=== PATIENT | male | born 1960 | race Hispanic/Latino ===

== ENCOUNTER 2017-12-06 08:17 | Emergency (ER) | payer MEDICARE | END 2017-12-06 08:56 | disposition home or self-care (01) | LOC: EDH 08:17 | DX: M10.9 Gout, unspecified (principal); E78.5 Hyperlipidemia, unspecified; Z90.49 Acquired absence of other specified parts of digestive tract ==

== ENCOUNTER 2018-04-09 08:13 | Emergency (ER) | payer MEDICARE ==
[2018-04-09 08:39] LABS: APPEARANCE,URINE Turbid (CLEAR); BILIRUBIN,URINE Small (NEGATIVE); GLUCOSE, URINE (UA) Negative (NEGATIVE); KETONES,URINE Negative (NEGATIVE); LEUKOCYTE ESTERASE ,URINE Large (NEGATIVE); NITRATE,URINE Positive (NEGATIVE); OCCULT BLOOD,URINE Moderate (NEGATIVE); PROTEIN,URINE POS 2+ (NEGATIVE)
[2018-04-09 08:40] LABS: COLOR,URINE Orange (YELLOW)
[2018-04-09 09:32] LABS: BACTERIA,URINE Moderate /HPF (None Seen); SQUAMOUS EPITHELIAL CELL,UR Few /HPF (0-2); WBC,URINE TNTC /HPF (0-1)
== END 2018-04-09 09:46 | disposition home or self-care (01) ==
LOC: EDH 08:13
DX: N39.0 Urinary tract infection, site not specified (principal); E78.5 Hyperlipidemia, unspecified; Z90.49 Acquired absence of other specified parts of digestive tract
CPT/HCPCS: 81001; 87088; 87186

== ENCOUNTER 2018-07-14 07:03 | Emergency (ER) | payer MEDICARE ==
[2018-07-14 07:30] LABS: APPEARANCE,URINE Turbid (CLEAR); BILIRUBIN,URINE Negative (NEGATIVE); COLOR,URINE Yellow (YELLOW); GLUCOSE, URINE (UA) Negative (NEGATIVE); KETONES,URINE Negative (NEGATIVE); LEUKOCYTE ESTERASE ,URINE Large (NEGATIVE); NITRATE,URINE Negative (NEGATIVE); OCCULT BLOOD,URINE Large (NEGATIVE); PROTEIN,URINE POS 2+ (NEGATIVE); UROBILINOGEN,URINE 0.2 mg/dL (0.2-1.0)
[2018-07-14 07:46] LABS: BACTERIA,URINE Moderate /HPF (None Seen); WBC,URINE TNTC /HPF (0-1)
[2018-07-14 07:55] LABS: SQUAMOUS EPITHELIAL CELL,UR Rare /HPF (0-2)
[2018-07-14] MEDS ORDERED: CEFTRIAXONE SODIUM 1 GM ONE (08:33)
[2018-07-14] MEDS ORDERED: LIDOCAINE HCL MPF 1% 5ML VIAL ONE (08:34)
== END 2018-07-14 08:51 | disposition home or self-care (01) ==
LOC: EDH 07:03
DX: N39.0 Urinary tract infection, site not specified (principal); E78.5 Hyperlipidemia, unspecified; M10.9 Gout, unspecified; Z87.891 Personal history of nicotine dependence
CPT/HCPCS: 81001; 87077; 87088; 87186; 96372; 99284; J0696; J3490

== ENCOUNTER 2018-07-30 18:33 | Emergency (ER) | payer MEDICARE ==
[2018-07-30] MEDS ORDERED: KETOROLAC TROMETHAMINE 60 MG/2 ML VIAL ONE (19:50)
== END 2018-07-30 20:24 | disposition home or self-care (01) ==
LOC: EDH 18:33
DX: S93.492A Sprain of other ligament of left ankle, initial encounter (principal); S83.8X1A Sprain of other specified parts of right knee, initial encounter; E78.5 Hyperlipidemia, unspecified; M10.9 Gout, unspecified; X58.XXXA Exposure to other specified factors, initial encounter; Y93.89 Activity, other specified; Y92.098 Other place in other non-institutional residence as the place of occurrence of the external cause; Y99.8 Other external cause status
CPT/HCPCS: 29505; 96372; 99283; J1885

== ENCOUNTER 2018-11-30 08:54 | Emergency (ER) | payer MEDICARE ==
[2018-11-30] MEDS ORDERED: KETOROLAC TROMETHAMINE 60 MG/2 ML VIAL ONE (09:48)
== END 2018-11-30 09:54 | disposition home or self-care (01) ==
LOC: EDH 08:54
DX: M10.9 Gout, unspecified (principal); E78.5 Hyperlipidemia, unspecified
CPT/HCPCS: 96372; 99283; J1885

== ENCOUNTER 2019-07-08 11:21 | Emergency (ER) | payer MEDICARE ==
[2019-07-08 11:57] LABS: APPEARANCE,URINE CLOUDY (CLEAR); BILIRUBIN,URINE SMALL (NEGATIVE); COLOR,URINE YELLOW (YELLOW); GLUCOSE, URINE (UA) 100 mg/dL (NEGATIVE); KETONES,URINE NEGATIVE (NEGATIVE); LEUKOCYTE ESTERASE ,URINE MODERATE (NEGATIVE); NITRATE,URINE POSITIVE (NEGATIVE); OCCULT BLOOD,URINE LARGE (NEGATIVE); PROTEIN,URINE >=300 mg/dL (NEGATIVE)
[2019-07-08 12:34] LABS: BACTERIA,URINE Many /HPF (None Seen); WBC,URINE 26-50 /HPF (0-1)
== END 2019-07-08 12:36 | disposition home or self-care (01) ==
LOC: EDH 11:21
DX: N39.0 Urinary tract infection, site not specified (principal); E78.5 Hyperlipidemia, unspecified; Z87.891 Personal history of nicotine dependence
CPT/HCPCS: 81001; 87077; 87088; 87186

== ENCOUNTER 2019-08-28 10:27 | Emergency (ER) | payer MEDICARE ==
[2019-08-28 11:12] LABS: APPEARANCE,URINE CLOUDY (CLEAR); BILIRUBIN,URINE NEGATIVE (NEGATIVE); COLOR,URINE YELLOW (YELLOW); GLUCOSE, URINE (UA) NEGATIVE (NEGATIVE); KETONES,URINE NEGATIVE (NEGATIVE); LEUKOCYTE ESTERASE ,URINE MODERATE (NEGATIVE); NITRATE,URINE POSITIVE (NEGATIVE); OCCULT BLOOD,URINE SMALL (NEGATIVE); PH,URINE 5.5 (5.0-8.0); PROTEIN,URINE 30 mg/dL (NEGATIVE); UROBILINOGEN,URINE 0.2 mg/dL (0.2-1.0)
[2019-08-28] MEDS ORDERED: ORPHENADRINE CITRATE 30 MG/ML ML ONE (11:16)
[2019-08-28] MEDS ORDERED: KETOROLAC TROMETHAMINE 30MG/ML ONE (11:16)
[2019-08-28] MEDS ORDERED: DEXAMETHASONE SOD PHOSPHATE 10MG/ML 1ML VIAL ONE (11:16)
[2019-08-28 11:50] LABS: RBC,URINE 0-1 /HPF (0-1)
[2019-08-28 11:51] LABS: BACTERIA,URINE Many /HPF (None Seen); SQUAMOUS EPITHELIAL CELL,UR Rare /HPF (0-2); WBC,URINE >100 /HPF (0-1)
[2019-08-28] MEDS ORDERED: CEFTRIAXONE SODIUM 1 GM ONE (11:57)
[2019-08-28] MEDS ORDERED: LIDOCAINE HCL-MPF 1% 2ML VIAL ONE (11:57)
== END 2019-08-28 12:30 | disposition home or self-care (01) ==
LOC: EDH 10:27
DX: N39.0 Urinary tract infection, site not specified (principal); M62.830 Muscle spasm of back; E78.5 Hyperlipidemia, unspecified; Z87.891 Personal history of nicotine dependence
CPT/HCPCS: 81001; 87077; 87088; 87186; 96372 ×4; 99284; J0696; J1100; J1885; J2360; J3490

== ENCOUNTER 2019-09-09 11:56 | Emergency (ER) | payer MEDICARE ==
[2019-09-09 12:12] LABS: APPEARANCE,URINE Clear (CLEAR); BILIRUBIN,URINE Negative (NEGATIVE); COLOR,URINE Yellow (YELLOW); GLUCOSE, URINE (UA) Negative (NEGATIVE); KETONES,URINE Negative (NEGATIVE); LEUKOCYTE ESTERASE ,URINE Negative (NEGATIVE); NITRATE,URINE Negative (NEGATIVE); OCCULT BLOOD,URINE Negative (NEGATIVE); PROTEIN,URINE Negative (NEGATIVE); UROBILINOGEN,URINE 0.2 mg/dL (0.2-1.0)
[2019-09-09] MEDS ORDERED: LIDOCAINE 5% TOPICAL PATCH TP ONE (12:12)
== END 2019-09-09 12:45 | disposition home or self-care (01) ==
LOC: EDH 11:56
DX: M54.5 Low back pain (principal); E78.5 Hyperlipidemia, unspecified; Z87.440 Personal history of urinary (tract) infections
CPT/HCPCS: 81003

== ENCOUNTER 2021-02-06 13:03 | Emergency (ER) | payer MEDICARE ==
[2021-02-06 13:32] LABS: APPEARANCE,URINE Clear (CLEAR); BILIRUBIN,URINE Negative (NEGATIVE); COLOR,URINE Yellow (YELLOW); GLUCOSE, URINE (UA) Negative (NEGATIVE); KETONES,URINE Negative (NEGATIVE); LEUKOCYTE ESTERASE ,URINE Small (NEGATIVE); NITRATE,URINE Negative (NEGATIVE); OCCULT BLOOD,URINE Negative (NEGATIVE); PH,URINE 6.5 (5.0-8.0); PROTEIN,URINE Negative (NEGATIVE)
[2021-02-06 13:49] LABS: BACTERIA,URINE Rare /HPF (None Seen); RBC,URINE 0-1 /HPF (0-1); SQUAMOUS EPITHELIAL CELL,UR Rare /HPF (0-2); WBC,URINE 0-1 /HPF (0-1)
[2021-02-06 13:54] LABS: BASOPHILS % (AUTO) 0.5 % (0.0-5.0); EOSINOPHILS % (AUTO) 0.8 % (0.0-8.0); HEMATOCRIT 40.2 % (42-54); LYMPHOCYTES % (AUTO) 9.8 % (21.0-51.0); MEAN CORPUSCULAR HEMOGLOBIN 29.5 pg (27.0-33.0); MEAN CORPUSCULAR HGB CONC 34.8 g/dL (32.0-36.0); MEAN CORPUSCULAR VOLUME 84.6 fL (79-99); MONOCYTES % (AUTO) 6.7 % (3.0-13.0); NEUTROPHILS % (AUTO) 81.5 % (40.0-77.0); PLATELET COUNT (AUTO) 161 K/uL (130-400); RED BLOOD CELL COUNT(AUTO) 4.75 MIL/uL (4.50-6.20); RED CELL DISTRIBUTION WIDTH 12.5 % (11.0-15.5)
[2021-02-06 14:10] LABS: BILIRUBIN,TOTAL 0.5 mg/dL (0.2-1.0); POTASSIUM 3.8 mmol/L (3.5-5.1); TOTAL PROTEIN, SERUM 7.9 g/dL (6.0-8.3)
== END 2021-02-06 14:22 | disposition home or self-care (01) ==
LOC: EDH 13:03
DX: R30.0 Dysuria (principal); M10.9 Gout, unspecified; E78.5 Hyperlipidemia, unspecified
CPT/HCPCS: 36415; 80053; 81001; 83605; 85025; 87040

== ENCOUNTER → 2021-03-24 | Outpatient (CLI) | payer MEDICARE | END | disposition home or self-care (01) | LOC: RAH 15:44 | PROVIDERS: ATTEND Physical Medicine & Rehabilitation | DX: M79.605 Pain in left leg (principal); M79.672 Pain in left foot; M77.32 Calcaneal spur, left foot; M47.816 Spondylosis without myelopathy or radiculopathy, lumbar region; K56.41 Fecal impaction | CPT/HCPCS: 72100; 73590; 73630 ==

== ENCOUNTER → 2021-09-21 | Outpatient (CLI) | payer MEDICARE | END | disposition home or self-care (01) | LOC: RAH 11:30 | PROVIDERS: ATTEND Physical Medicine & Rehabilitation | DX: M79.605 Pain in left leg (principal) | CPT/HCPCS: 73218 ==

== ENCOUNTER → 2021-11-16 | Outpatient (CLI) | payer MEDICARE | END | disposition home or self-care (01) | LOC: RAH 14:14 | PROVIDERS: ATTEND Physical Medicine & Rehabilitation | DX: R22.42 Localized swelling, mass and lump, left lower limb (principal) | CPT/HCPCS: 76882 ==

== ENCOUNTER 2022-10-31 06:49 | Emergency (ER) | payer MEDICARE ==
[~2022-10-31] VITALS: Ht 172.7 cm; Wt 88.1 kg
[~2022-10-31 06:49] MED LIST: CEFU500T67 PO; IBUP-2070 PO
[2022-10-31 06:51] VITALS: BP 139/81
[2022-10-31 07:36] LABS: APPEARANCE,URINE CLEAR (CLEAR); BILIRUBIN,URINE NEGATIVE (NEGATIVE); COLOR,URINE YELLOW (YELLOW); GLUCOSE, URINE (UA) NEGATIVE (NEGATIVE); KETONES,URINE NEGATIVE (NEGATIVE); LEUKOCYTE ESTERASE ,URINE MODERATE Leu/uL (NEGATIVE); NITRATE,URINE NEGATIVE (NEGATIVE); OCCULT BLOOD,URINE MODERATE (NEGATIVE); PROTEIN,URINE NEGATIVE (NEGATIVE); UROBILINOGEN,URINE 0.2 mg/dL (0.2-1.0)
[2022-10-31 07:44] LABS: BACTERIA,URINE Few /HPF (None Seen); RBC,URINE 0-1 /HPF (0-1); SQUAMOUS EPITHELIAL CELL,UR Rare /HPF (0-2)
[2022-10-31] MEDS ORDERED: LEVO750T68 PO (07:53)
== END 2022-10-31 08:28 | disposition home or self-care (01) ==
LOC: EDH 06:49
DX: N39.0 Urinary tract infection, site not specified (principal); E78.00 Pure hypercholesterolemia, unspecified; Z79.1 Long term (current) use of non-steroidal anti-inflammatories (NSAID); Z90.49 Acquired absence of other specified parts of digestive tract; Z79.899 Other long term (current) drug therapy
CPT/HCPCS: 81001; 87077; 87088; 87186

== ENCOUNTER 2024-08-27 10:15 | Emergency (ER) | payer MEDICARE ==
[~2024-08-27] VITALS: Ht 162.6 cm; Wt 88.0 kg
[~2024-08-27 10:15] MED LIST changes: +LEVO750T68 PO; +MECL-302 PO
[2024-08-27 11:00] LABS: BASOPHILS # (AUTO) 0.04 K/uL (0.00-0.20); BASOPHILS % (AUTO) 0.7 % (0.0-5.0); EOSINOPHILS # (AUTO) 0.14 K/uL (0.00-0.70); EOSINOPHILS % (AUTO) 2.5 % (0.0-8.0); HEMATOCRIT 37.8 % (42-54); IMMATURE GRANULOCYTE ABSOLUTE 0.02 K/uL (0-1); LYMPHOCYTES # (AUTO) 1.6 K/uL (1.0-4.8); LYMPHOCYTES % (AUTO) 27.8 % (21.0-51.0); MEAN CORPUSCULAR HEMOGLOBIN 30.5 pg (27.0-33.0); MEAN CORPUSCULAR VOLUME 84.8 fL (79-99); MONOCYTES # (AUTO) 0.4 K/uL (0.1-1.0); MONOCYTES % (AUTO) 6.3 % (3.0-13.0); NEUTROPHILS # (AUTO) 3.6 K/uL (1.8-7.7); NEUTROPHILS % (AUTO) 62.3 % (40.0-77.0); PLATELET COUNT (AUTO) 176 K/uL (130-400); RED BLOOD CELL COUNT(AUTO) 4.46 MIL/uL (4.50-6.20); RED CELL DISTRIBUTION WIDTH 12.2 % (11.0-15.5); WHITE BLOOD COUNT (AUTO) 5.7 K/uL (4.8-10.8)
[2024-08-27 11:08] LABS: APPEARANCE,URINE CLEAR (CLEAR); BILIRUBIN,URINE NEGATIVE (NEGATIVE); COLOR,URINE YELLOW (YELLOW); GLUCOSE, URINE (UA) NEGATIVE (NEGATIVE); KETONES,URINE NEGATIVE (NEGATIVE); LEUKOCYTE ESTERASE ,URINE NEGATIVE Leu/uL (NEGATIVE); NITRATE,URINE NEGATIVE (NEGATIVE); OCCULT BLOOD,URINE NEGATIVE (NEGATIVE); PROTEIN,URINE NEGATIVE (NEGATIVE); UROBILINOGEN,URINE 0.2 mg/dL (0.2-1.0)
[2024-08-27 11:10] LABS: CREATININE 0.9 mg/dL (0.5-1.3); POTASSIUM 3.5 mmol/L (3.5-5.1)
[2024-08-27 11:13] LABS: ADD UA MICROSCOPIC NO
--- NOTE | 2024-08-27 11:44 | ERN ---
General Chief Complaint: Abdominal Pain Stated Complaint: LLQ PAIN X 3 DAYS Time Seen by MD: 10:18 Time Seen by Midlevel: 10:18 Source: patient History of Present Illness Initial Comments Patient is a 64-year-old male with a past medical history of BPH, hyperlipidemia, and hypertension presenting for evaluation of left lower quadrant abdominal pain. Patient states the pain started approximately three days ago and has progressively worsened. He denies any nausea, vomiting, diarrhea, fever, chills, or any other symptoms at this time. Denies any dysuria or hematuria. Allergies: Coded Allergies: No Known Allergies (Unverified Allergy, Unknown, 07/08/19) Home Meds Active Scripts Meclizine HCl (Meclizine HCl) 25 Mg Tablet, 25 MG PO TID for vertigo, #12 TAB 0 Refills Prov:DANTE VILLARREAL MD 07/16/23 Levofloxacin (Levaquin 750Mg Tabs) 750 Mg Tablet, 500 MG PO DAILY for 7 Days, #7 TAB Prov:EMILY SERNA MD 10/31/22 Cefuroxime Axetil (Cefuroxime) 500 Mg Tablet, 500 MG PO BID for 6 Days, #12 TAB Prov:KAROL QUEVEDO MD 10/03/22 Ibuprofen (Ibuprofen) 600 Mg Tablet, 600 MG PO Q6H PRN for PAIN, #30 TAB Prov:KAROL QUEVEDO MD 10/03/22 Past Medical History Past Medical History: High Cholesterol, Prostatitis Past Surgical History: Cholecystectomy Surgical History Other: LEFT HAND Social History Social History: Negative, Lives with family ROS Dictation CONSTITUTIONAL: Negative except for HPI HEAD/FACE: Negative except for HPI EENT: Negative except for HPI RESPIRATORY: Negative except for HPI GASTROINTESTINAL/ABDOMINAL: Negative except for HPI GENITOURINARY: Negative except for HPI MUSCULOSKELETAL: Negative except for HPI INTEGUMENTARY: Negative except for HPI NEUROLOGICAL/PSYCH: Negative except for HPI HEMATOLOGIC/LYMPHATIC: Negative except for HPI All Systems Negative, Except as noted above. 13 point review of systems assessed and all negative except for above. Physical Exam Physical Exam Dictation Vital Signs reviewed General Appearance: Alert, oriented x 3, no acute distress, well developed, nourished. Head and Face: non-traumatic. Eyes: PERRL, pink conjunctivas, eyelid no trauma, anterior chamber with arcus senilis. Ears: Pinnas intact and no signs of trauma or erythema ear canals clear and no discharge TM no erythema Nose: No discharge, no bleeding. Oropharynx: Mouth normal, tongue pink, pharynx clear,no erythema, tonsils no exudates, no abscesses noted, mucous membrane moist Neck: Supple, non-tender, no thyromegaly, no masses, no JVD, no bruits Breast:Deferred Chest:No tenderness, no crepitus, no paradoxical movement, no retractions Lungs:Clear, well-ventilated, symmetric, no rales, no wheezing, no rhonchi, no stridor, good breath sounds bilaterally Heart: Regular rate, regular rhythm, no murmur, no gallops Vascular: no peripheral edema, Abdomen: Soft, positive bowel sounds, nondistended, no guarding, Left lower quadrant abdominal tenderness, no rebound, no masses no hepatomegaly, no splenomegaly, no Dukes's sign, no hernias. Rectal: Deferred Genital: Deferred Neurological: Normal speech, motor function intact, sensory function intact Musculoskeletal: Neck nontender, full range of motion, back nontender, full range of motion, Extremities: nontender, full range of motion Skin: Color pink, dry, no turgor, no rash, no lacerations, no abrasions, no contusions. Lymphatic: Deferred Results Laboratory and Microbiology Lab and Micro Result Laboratory Tests Test 08/27/24 10:39 White Blood Count 5.7 K/uL (4.8-10.8) Red Blood Count 4.46 MIL/uL (4.50-6.20) L Hemoglobin 13.6 g/dL (14.0-18.0) L Hematocrit 37.8 % (42-54) L Mean Corpuscular Volume 84.8 fL (79-99) Mean Corpuscular Hemoglobin 30.5 pg (27.0-33.0) Mean Corpuscular Hemoglobin Concent 36.0 g/dL (32.0-36.0) Red Cell Distribution Width 12.2 % (11.0-15.5) Platelet Count 176 K/uL (130-400) Mean Platelet Volume 10.5 fL (7.5-10.5) Immature Granulocyte % (Auto) 0.4 % (0-1) Neutrophils (%) (Auto) 62.3 % (40.0-77.0) Lymphocytes (%) (Auto) 27.8 % (21.0-51.0) Monocytes (%) (Auto) 6.3 % (3.0-13.0) Eosinophils (%) (Auto) 2.5 % (0.0-8.0) Basophils (%) (Auto) 0.7 % (0.0-5.0) Neutrophils # (Auto) 3.6 K/uL (1.8-7.7) Lymphocytes # (Auto) 1.6 K/uL (1.0-4.8) Monocytes # (Auto) 0.4 K/uL (0.1-1.0) Eosinophils # (Auto) 0.14 K/uL (0.00-0.70) Basophils # (Auto) 0.04 K/uL (0.00-0.20) Absolute Immature Granulocyte (auto 0.02 K/uL (0-1) Nucleated Red Blood Cells 0.0 % (0.0-0.19) Urine Color YELLOW (YELLOW) Urine Appearance CLEAR (CLEAR) Urine pH 5.0 (5.0-8.0) Urine Specific [place] 1.023 (1.001-1.031) Urine Protein NEGATIVE mg/dL (NEGATIVE) Urine Glucose (UA) NEGATIVE mg/dL (NEGATIVE) Urine Ketones NEGATIVE mg/dL (NEGATIVE) Urine Occult Blood NEGATIVE (NEGATIVE) Urine Nitrate NEGATIVE (NEGATIVE) Urine Bilirubin NEGATIVE mg/dL (NEGATIVE) Urine Urobilinogen 0.2 mg/dL (0.2-1.0) Urine Leukocyte Esterase NEGATIVE Mikael/uL Sodium Level 138 mmol/L (136-145) Potassium Level 3.5 mmol/L (3.5-5.1) Chloride Level 101 mmol/L (101-111) Carbon Dioxide Level 28 mmol/L (21-32) Blood Urea Nitrogen 15 mg/dL (7-18) Creatinine 0.9 mg/dL (0.5-1.3) Glomerular Filtration Rate Calc 95 mL/min (>90) Random Glucose 115 mg/dL (70-105) H Total Calcium 9.0 mg/dL (8.5-10.1) Labs Reviewed?: Yes MDM MDM: Patient is a 64-year-old male with a past medical history of BPH, hyperlipidemia, and hypertension presenting for evaluation of left lower quadrant abdominal pain. Patient states the pain started approximately three days ago and has progressively worsened. He denies any nausea, vomiting, diarrhea, fever, chills, or any other symptoms at this time. Denies any dysuria or hematuria. On physical examination patient is in no acute distress. His initial vital signs are unremarkable. He is afebrile. His abdominal examination reveals left lower quadrant tenderness with no rebound or guarding. His CBC shows no leukocytosis. His chemistries are unremarkable. His urine does not show any evidence of infection. His CT scan of the abdomen reveals acute diverticulitis with no evidence of abscess or perforation. Given that patient has no white count and is nontoxic appearing he will be treated outpatient with Cipro and Flagyl. Patient advised to follow up with his PCP in 2-3 days for repeat evaluation. Differential diagnosis: Constipation, diverticulitis, small-bowel obstruction There are no social concerns with this patient. Prescription drug management Prescriptions will include: Metronidazole and Cipro Medical management and examination interpretation discussions were had by me with other qualified healthcare professionals as indicated for the patient's care. ED Course Orders Procedure Category Date Status Time Cbc With Differential LAB 08/27/24 Complete 10: Basic Metabolic Panel LAB 08/27/24 Complete 10: Urinalysis Profile LAB 08/27/24 Complete 10:26 Ct Abdomen/Pelvis W/O CT 08/27/24 Resulted Contrast 10:26 Vital Signs Date Time Temp Pulse Resp B/P (MAP) Pulse Ox O2 Delivery O2 Flow Rate FiO2 08/27/24 12:04 99.0 87 16 122/79 97 Room Air* 0 08/27/24 10:35 99.0 73 16 127/72 97 Room Air* 0 08/27/24 10:18 98.1 184 16 123/76 97 Room Air 0 [place] [id number] [address] IMAGING REPORT Signed PATIENT: MESSI PELLETIER JR MR#: [id number] : 1960 SEX: M AGE: 64 LOCATION: [facility] ORDER 1026 STATUS: REG ER REPORT#: [id number] SERVICE 1026 REASON: LLQ ABD PAIN ORDERING PHYSICIAN: JESSIE QURESHI PROCEDURE: ABD PEL WO - CT ABDOMEN/PELVIS W/O CONTRAST CT ABDOMEN/PELVIS W/O CONTRAST HISTORY: Abdominal pain COMPARISON: None TECHNIQUE: Multiple sequential axial images of the abdomen and pelvis were obtained from the dome of the diaphragm through symphysis pubis. Patient was not given contrast through intravenous route. Oral contrast was not given. FINDINGS: No pleural effusion is seen bilaterally. There is no evidence of parenchymal disease or pulmonary nodule of the visualized lower lungs. Degenerative changes of the thoracolumbar spine are present. The heart is not enlarged. Liver is enlarged measuring 22 cm. Fatty changes of the liver are noted. Postcholecystectomy changes are seen. The liver, spleen, adrenal glands and pancreas are unremarkable. There is no evidence of hydronephrosis bilaterally. No evidence of renal stone is seen. Fecal material is seen in the colon. There are normal size retroperitoneal and mesenteric lymph nodes. No ascites is seen. Atherosclerotic changes are present. Sigmoid colon wall thickening is seen with adjacent fat stranding may be related to acute sigmoid diverticulitis. No focal abscess is seen. Pelvic sidewalls are symmetric bilaterally. Bladder is poorly distended with apparent wall thickening and adjacent fat stranding may be related to cystitis. Urinalysis correlation may be helpful. IMPRESSION: 1. Sigmoid colon wall thickening is seen with adjacent fat stranding may be related to acute sigmoid diverticulitis. No focal abscess is seen. Bladder is poorly distended with apparent wall thickening and adjacent fat stranding may be related to cystitis. Urinalysis correlation may be helpful. CT was performed with one or more following dose reduction techniques: automated exposure control, adjustment of the mA and kv according to patient's size, or use of a iterative reconstruction technique. DICTATED BY: VANESSA RIDLEY MD DATE: 08/27/24 120 ELECTRONICALLY SIGNED BY: VANESSA RIDLEY MD DATE: 08/27/24 1213 DX & DISP Disposition: Discharge Departure Impression: Primary Impression: Diverticulitis Condition: Stable Scripts Ciprofloxacin HCl (Cipro) 500 Mg Tablet 1 TAB PO BID for 5 Days, #10 TAB 0 Refills Prov: JESSIE QURESHI 08/27/24 Metronidazole (Metronidazole) 500 Mg Tablet 1 TAB PO TID for 5 Days, #15 TAB 0 Refills Prov: JESSIE QURESHI 08/27/24 Additional Instructions: Your CT scan of the abdomen pelvis reveals acute diverticulitis of your left lower quadrant. The remainder of your blood work is unremarkable. I have given you a prescription for Cipro and metronidazole for outpatient evaluation. You will need to follow up with your primary care doctor in 2-3 days for repeat evaluation. Please continue with a liquid diet and bowel rest for the next 4-5 days. If you develop any new or worsening symptoms please report to the ER for further evaluation. Referrals: ASHLYN CAMPUZANO MD (PCP) Time of Disposition: 12:38 I have reviewed the case, and I agree with, Diagnosis and Plan I performed the substantive portion of the visit. I have reviewed and personally made and approve the management plan that is documented in the note by myself or the COLT. I acknowledge for responsibility for the patient's management plan. JESSIE QURESHI Aug 27, 2024 11:44
--- NOTE | 2024-08-27 12:13 | HMCIMG ---
CT ABDOMEN/PELVIS W/O CONTRAST HISTORY: Abdominal pain COMPARISON: None TECHNIQUE: Multiple sequential axial images of the abdomen and pelvis were obtained from the dome of the diaphragm through symphysis pubis. Patient was not given contrast through intravenous route. Oral contrast was not given. FINDINGS: No pleural effusion is seen bilaterally. There is no evidence of parenchymal disease or pulmonary nodule of the visualized lower lungs. Degenerative changes of the thoracolumbar spine are present. The heart is not enlarged. Liver is enlarged measuring 22 cm. Fatty changes of the liver are noted. Postcholecystectomy changes are seen. The liver, spleen, adrenal glands and pancreas are unremarkable. There is no evidence of hydronephrosis bilaterally. No evidence of renal stone is seen. Fecal material is seen in the colon. There are normal size retroperitoneal and mesenteric lymph nodes. No ascites is seen. Atherosclerotic changes are present. Sigmoid colon wall thickening is seen with adjacent fat stranding may be related to acute sigmoid diverticulitis. No focal abscess is seen. Pelvic sidewalls are symmetric bilaterally. Bladder is poorly distended with apparent wall thickening and adjacent fat stranding may be related to cystitis. Urinalysis correlation may be helpful. IMPRESSION: 1. Sigmoid colon wall thickening is seen with adjacent fat stranding may be related to acute sigmoid diverticulitis. No focal abscess is seen. Bladder is poorly distended with apparent wall thickening and adjacent fat stranding may be related to cystitis. Urinalysis correlation may be helpful. CT was performed with one or more following dose reduction techniques: automated exposure control, adjustment of the mA and kv according to patient's size, or use of a iterative reconstruction technique.
[2024-08-27] MEDS ORDERED: CIPR-278 PO (12:40)
[2024-08-27] MEDS ORDERED: METR-172 PO (12:40)
[2024-08-27] MEDS: ondanSETRON 4MG INJ IVP ONE (13:23)
[2024-08-27] MEDS: morPHINE 2 MG SYG IVP ONE (13:23)
[2024-08-27 13:26] VITALS: BP 138/86; PULSE 87; RESP 16; TEMP 98; O2SAT 97
== END 2024-08-27 14:04 | disposition home or self-care (01) ==
LOC: EDH 10:15
DX: K57.32 Diverticulitis of large intestine without perforation or abscess without bleeding (principal); E78.00 Pure hypercholesterolemia, unspecified; I10 Essential (primary) hypertension; Z90.49 Acquired absence of other specified parts of digestive tract; Z79.899 Other long term (current) drug therapy
CPT/HCPCS: 99285; 74176; 96374; 96375; 80048; 85025; 81003; 36415; J2270; J2405